=== PATIENT | male | born 1990 | race Caucasian/White ===

== ENCOUNTER 2018-09-23 09:10 | Emergency (ER) | payer OTHER ==
[2018-09-23 09:23] VITALS: TEMP 98.2
[2018-09-23] MEDS ORDERED: ONDANSETRON 4 MG/2 ML VIAL IVP STA (09:57)
[2018-09-23] MEDS ORDERED: HYDROmorphone 1 MG/ML 1 ML SYRINGE IVP STA (09:57)
--- NOTE | 2018-09-23 10:00 | ED ---
General Adult HPI - General Chief complaint: Urogenital Stated complaint: poss hernia Time Seen by Provider: 09/23/18 09:10 Source: patient, RN notes reviewed Mode of arrival: ambulatory Limitations: no limitations - History of Present Illness Initial comments: This is a 28-year-old male who presents emergency Department complaining of left inguinal pain. Patient states she's increased size in that area. Patient states his left testicle is also tender. Patient states his left side of his scrotum is swollen and there is ecchymosis on the scrotum. Patient denies any trauma. Patient states it occurred last night when he was dancing and he had increased pain since then. Patient states the pain is much more in the inguinal canal that it is in the testicle but the testicle is definitely more sensitive than normal. Patient denies any dysuria or hematuria. Patient denies any fever chills per patient denies any trauma to the area. - Related Data Previous Rx's Medication Instructions Recorded Ibuprofen [Motrin] 600 mg PO Q6HR PRN #20 tab 09/23/18 Allergies Allergy/AdvReac Type Severity Reaction Status Date / Time No Known Allergies Allergy Verified 09/23/18 10:21 Review of Systems ROS Statement: Those systems with pertinent positive or pertinent negative responses have been documented in the HPI. ROS Other: All systems not noted in ROS Statement are negative. Past Medical History Past Medical History: No Reported History History of Any Multi-Drug Resistant Organisms: None Reported Past Surgical History: Orthopedic Surgery Past Psychological History: No Psychological Hx Reported Smoking Status: Current every day smoker Past Alcohol Use History: Occasional Past Drug Use History: None Reported General Exam - General Exam Comments Initial Comments: GENERAL: Patient is well-developed and well-nourished. Patient is nontoxic and well- hydrated and is in moderate distress. ENT: Neck is soft and supple. No significant lymphadenopathy is noted. Oropharynx is clear. Moist mucous membranes. Neck has full range of motion without eliciting any pain. EYES: The sclera were anicteric and conjunctiva were pink and moist. Extraocular movements were intact and pupils were equal round and reactive to light. Eyelids were unremarkable. PULMONARY: Unlabored respirations. Good breath sounds bilaterally. No audible rales rhonchi or wheezing was noted. CARDIOVASCULAR: There is a regular rate and rhythm without any murmurs gallops or rubs. ABDOMEN: Soft and nontender with normal bowel sounds. No palpable organomegaly was noted. There is no palpable pulsatile mass. SKIN: Skin is clear with no lesions or rashes and otherwise unremarkable. GENITALIA: Scrotum is ecchymotic and the left side of the scrotal sac is enlarged compared to the right testicle is slightly more tender than normal. Inguinal canal is tender and swollen. It is difficult to assess if there is a hernia because the patient cannot tolerate the complete exam. NEUROLOGIC: Patient is alert and oriented x3. Cranial nerves II through XII are grossly intact. Motor and sensory are also intact. Normal speech, volume and content. Symmetrical smile. MUSCULOSKELETAL: Normal extremities with adequate strength and full range of motion. No lower extremity swelling or edema. No calf tenderness. LYMPHATICS: No significant lymphadenopathy is noted PSYCHIATRIC: Normal psychiatric evaluation. Normal interpersonal interactions appears functionally intact in deals appropriately with others. No signs of depression. No signs of anxiety. Limitations: no limitations Course Vital Signs 09/23/18 09:20 Temperature 98.2 F Pulse Rate 106 H Respiratory 18 Rate Blood Pressure 126/78 O2 Sat by Pulse 98 Oximetry Medical Decision Making - Medical Decision Making Ultrasound showed no torsion. Ultrasound was questioning inguinal hernia however. So CAT scan was ordered. CAT scan was done which showed possible varicocele versus hernia Dr. because he came down to see the patient he was confident was not a hernia. He wants to follow patient is now patient. - Lab Data Result diagrams: 09/23/18 10:10 09/23/18 10:10 Lab Results 09/23/18 09/23/18 09/23/18 Range/Units 10:10 10:10 10:10 WBC 11.4 H (3.8-10.6) k/uL RBC 4.92 (4.30-5.90) m/uL Hgb 15.6 (13.0-17.5) gm/dL Hct 44.8 (39.0-53.0) % MCV 91.0 (80.0-100.0) fL MCH 31.7 (25.0-35.0) pg MCHC 34.8 (31.0-37.0) g/dL RDW 12.5 (11.5-15.5) % Plt Count 286 (150-450) k/uL Neutrophils % 72 % Lymphocytes % 18 % Monocytes % 4 % Eosinophils % 4 % Basophils % 0 % Neutrophils # 8.2 H (1.3-7.7) k/uL Lymphocytes # 2.0 (1.0-4.8) k/uL Monocytes # 0.5 (0-1.0) k/uL Eosinophils # 0.4 (0-0.7) k/uL Basophils # 0.0 (0-0.2) k/uL Sodium 144 (137-145) mmol/L Potassium 4.4 (3.5-5.1) mmol/L Chloride 104 (98-107) mmol/L Carbon Dioxide 27 (22-30) mmol/L Anion Gap 13 mmol/L BUN 9 (9-20) mg/dL Creatinine 0.80 (0.66-1.25) mg/dL Est GFR (CKD-EPI)AfAm >90 (>60 ml/min/1.73 sqM) Est GFR (CKD-EPI)NonAf >90 (>60 ml/min/1.73 sqM) Glucose 97 (74-99) mg/dL Calcium 9.8 (8.4-10.2) mg/dL Total Bilirubin 0.6 (0.2-1.3) mg/dL AST 41 (17-59) U/L ALT 34 (21-72) U/L Alkaline Phosphatase 45 (38-126) U/L Total Protein 8.1 (6.3-8.2) g/dL Albumin 4.8 (3.5-5.0) g/dL Urine Color Yellow Urine Appearance Clear (Clear) Urine pH 6.5 (5.0-8.0) Ur Specific Jeffers 1.021 (1.001-1.035) Urine Protein 1+ H (Negative) Urine Glucose (UA) Negative (Negative) Urine Ketones Negative (Negative) Urine Blood Negative (Negative) Urine Nitrite Negative (Negative) Urine Bilirubin Negative (Negative) Urine Urobilinogen <2.0 (<2.0) mg/dL Ur Leukocyte Esterase Negative (Negative) Urine RBC 1 (0-5) /hpf Urine WBC <1 (0-5) /hpf Urine Mucus Few H (None) /hpf Disposition Clinical Impression: Groin strain Disposition: HOME SELF-CARE Condition: Good Instructions: Groin Strain (ED) Prescriptions: Ibuprofen [Motrin] 600 mg PO Q6HR PRN #20 tab PRN Reason: For pain Is patient prescribed a controlled substance at d/c from ED?: No Referrals: None,Stated [Primary Care Provider] - 1-2 days
[2018-09-23 10:53] LABS: Basophils % (A) 0 %; Eosinophils # (A) 0.4 k/uL (0-0.7); Eosinophils % (A) 4 %; HCT 44.8 % (39.0-53.0); HGB 15.6 gm/dL (13.0-17.5); Lymphocytes % (A) 18 %; MCH 31.7 pg (25.0-35.0); MCHC 34.8 g/dL (31.0-37.0); Mean Platelet Volume 6.3; Monocytes # (A) 0.5 k/uL (0-1.0); Monocytes % (A) 4 %; Neutrophils # (A) 8.2 k/uL (1.3-7.7); Neutrophils % (A) 72 %; Platelet Count 286 k/uL (150-450); RBC 4.92 m/uL (4.30-5.90); RDW 12.5 % (11.5-15.5); WBC 11.4 k/uL (3.8-10.6)
[2018-09-23 10:54] LABS: Appearance,Urine Clear (Clear); Bilirubin,Urine Negative (Negative); Blood,Urine Negative (Negative); Color,Urine Yellow; Glucose,Urine (UA) Negative (Negative); Ketones,Urine Negative (Negative); Leukocyte Esterase,Urine Negative (Negative); Mucus,Urine Few /hpf; Nitrite,Urine Negative (Negative); PH, Urine 6.5 (5.0-8.0); Protein,Urine 1+ (Negative); RBC,Urine 1 /hpf (0-5); Specific Gravity,Urine 1.021 (1.001-1.035); Urobilinogen,Urine <2.0 mg/dL (<2.0); WBC,Urine <1 /hpf (0-5)
[2018-09-23 11:00] LABS: ALT 34 U/L (21-72); AST 41 U/L (17-59); Albumin 4.8 g/dL (3.5-5.0); Alkaline Phosphatase 45 U/L (38-126); Anion Gap 13 mmol/L; Blood Urea Nitrogen 9 mg/dL (9-20); Calcium 9.8 mg/dL (8.4-10.2); Carbon Dioxide 27 mmol/L (22-30); Chloride 104 mmol/L (98-107); Glucose 97 mg/dL (74-99); Potassium 4.4 mmol/L (3.5-5.1); Sodium 144 mmol/L (137-145); Total Bilirubin 0.6 mg/dL (0.2-1.3); Total Protein 8.1 g/dL (6.3-8.2)
--- NOTE | 2018-09-23 12:06 | US ---
EXAMINATION TYPE: US scrotum with doppler. Grayscale and color Doppler Duplex imaging performed of federico ramirez scrotum. DATE OF EXAM: 09/23/2018 COMPARISON: NONE CLINICAL HISTORY: Pain. Left groin pain x 1 day EXAM MEASUREMENTS: TESTICLES: Right Testicle: 4.7 x 2.4 x 3.5 cm Left Testicle: 5.1 x 2.6 x 3.3 cm EPIDIDYMIS HEAD: Right Epididymis: 0.9 x 1.0 x 1.1 cm Left Epididymis: 1.1 x 1.0 x 1.2 cm Doppler performed to assess for testicular vascularity; good bilateral color flow and waveforms are s een. There is no evidence of testicular torsion. Presence of hydroceles: small amount of fluid posterior to to right testicle Presence of varicoceles: yes left Right epididymis: 0.3cm cyst Right testicle: 0.2cm echogenic focus medial mid testicle Left groin: 2.2 x 1.2 x 2.0cm outpouching at patients area of concern, area increases with valsalva, probable hernia IMPRESSION: Correlate for possible inguinal hernia.
--- NOTE | 2018-09-23 13:40 | CT ---
EXAMINATION TYPE: CT abdomen pelvis w con DATE OF EXAM: 09/23/2018 COMPARISON: None HISTORY: Pain CT DLP: 497.8 mGycm CONTRAST: CT scan of the abdomen and pelvis is performed without Oral Contrast and with IV Contrast, patient in jected with 100 ml mL of Isovue 300. FINDINGS: LUNG BASES-: No visible nodule. No infiltrate. LIVER/GB: No calcified gallstones. No space occupying hepatic lesion. Biliary tree is of normal ca liber. PANCREAS: No inflammation. No distinct mass. SPLEEN: No splenic enlargement. No lesion seen. ADRENALS: No nodule. No thickening. KIDNEYS/BLADDER: No hydronephrosis. No nephrolithiasis. No distinct renal mass. Urinary bladder g rossly unremarkable. BOWEL: Normal appendix. Normal bowel caliber. No inflammation. GENITAL ORGANS: No gross abnormality. LYMPH NODES: No greater than 1cm abdominal or pelvic lymph nodes are appreciated. AORTA: No significant abnormality. OSSEOUS STRUCTURES: No significant abnormality is seen. OTHER: No significant additional abnormality is seen. IMPRESSION: 1. No significant abnormality seen to account for the patient's symptoms.
--- NOTE | 2018-09-23 15:17 | P.GSHP ---
History of Present Illness H&P Date: 09/23/18 Past Medical History Past Medical History: No Reported History History of Any Multi-Drug Resistant Organisms: None Reported Past Surgical History: Orthopedic Surgery Past Psychological History: No Psychological Hx Reported Smoking Status: Current every day smoker Past Alcohol Use History: Occasional Past Drug Use History: None Reported Medications and Allergies Home Medications Medication Instructions Recorded Confirmed Type Ibuprofen [Motrin] 600 mg PO Q6HR PRN #20 tab 09/23/18 Rx Allergies Allergy/AdvReac Type Severity Reaction Status Date / Time No Known Allergies Allergy Verified 09/23/18 10:21 Surgical - Exam Vital Signs Temp Pulse Resp BP Pulse Ox 98.2 F 106 H 18 126/78 98 09/23/18 09:20 09/23/18 09:20 09/23/18 09:20 09/23/18 09:20 09/23/18 09:20 - General well developed, no distress - Eyes PERRL - ENT normal pinna - Neck no masses - Respiratory normal expansion - Cardiovascular Rhythm: regular - Abdomen Abdomen: soft, non tender - Genitourinary Left hemiscrotum fullness there is evidence of ecchymosis. There is no evidence of an inguinal hernia. Results - Labs 09/23/18 10:10 09/23/18 10:10 Abnormal Lab Results - Last 24 Hours (Table) 09/23/18 09/23/18 Range/Units 10:10 10:10 WBC 11.4 H (3.8-10.6) k/uL Neutrophils # 8.2 H (1.3-7.7) k/uL Urine Protein 1+ H (Negative) Urine Mucus Few H (None) /hpf Diabetes panel 09/23/18 Range/Units 10:10 Sodium 144 (137-145) mmol/L Potassium 4.4 (3.5-5.1) mmol/L Chloride 104 (98-107) mmol/L Carbon Dioxide 27 (22-30) mmol/L BUN 9 (9-20) mg/dL Creatinine 0.80 (0.66-1.25) mg/dL Glucose 97 (74-99) mg/dL Calcium 9.8 (8.4-10.2) mg/dL AST 41 (17-59) U/L ALT 34 (21-72) U/L Alkaline Phosphatase 45 (38-126) U/L Total Protein 8.1 (6.3-8.2) g/dL Albumin 4.8 (3.5-5.0) g/dL Calcium panel 09/23/18 Range/Units 10:10 Calcium 9.8 (8.4-10.2) mg/dL Albumin 4.8 (3.5-5.0) g/dL Pituitary panel 09/23/18 Range/Units 10:10 Sodium 144 (137-145) mmol/L Potassium 4.4 (3.5-5.1) mmol/L Chloride 104 (98-107) mmol/L Carbon Dioxide 27 (22-30) mmol/L BUN 9 (9-20) mg/dL Creatinine 0.80 (0.66-1.25) mg/dL Glucose 97 (74-99) mg/dL Calcium 9.8 (8.4-10.2) mg/dL Adrenal panel 09/23/18 Range/Units 10:10 Sodium 144 (137-145) mmol/L Potassium 4.4 (3.5-5.1) mmol/L Chloride 104 (98-107) mmol/L Carbon Dioxide 27 (22-30) mmol/L BUN 9 (9-20) mg/dL Creatinine 0.80 (0.66-1.25) mg/dL Glucose 97 (74-99) mg/dL Calcium 9.8 (8.4-10.2) mg/dL Total Bilirubin 0.6 (0.2-1.3) mg/dL AST 41 (17-59) U/L ALT 34 (21-72) U/L Alkaline Phosphatase 45 (38-126) U/L Total Protein 8.1 (6.3-8.2) g/dL Albumin 4.8 (3.5-5.0) g/dL - Imaging CT scan - abdomen: report reviewed (Computed tomography scan was reviewed with Dr. Faustin. There is no evidence of inguinal hernia. There is some fullness to the rectus sheath with possible muscle tear.) Assessment and Plan Assessment: Left we will pain most likely due to rectus sheath tear with small amount of hemorrhage. Patient will be observed. Recommend discharged home on Motrin 800 mg by mouth 3 times a day. He'll follow-up when necessary.
[2018-09-23 15:18] VITALS: BP 122/77; PULSE 100; RESP 16
== END 2018-09-23 15:15 | disposition home or self-care (01) ==
LOC: EC 09:10
DX: S39.011A Strain of muscle, fascia and tendon of abdomen, initial encounter (principal); F17.200 Nicotine dependence, unspecified, uncomplicated; Z98.890 Other specified postprocedural states; X58.XXXA Exposure to other specified factors, initial encounter; Y93.41 Activity, dancing
CPT/HCPCS: 36415; 80053; 85025; 81001; 93975; 76870; 74177; 99284; 96374; 96375; J2405; J1170; Q9967